=== PATIENT | male | born 1970 | race Caucasian/White ===

== ENCOUNTER 2016-11-06 12:39 | Emergency (ER) | payer OTHER ==
[2016-11-06] MEDS ORDERED: Ketorolac INJ* 30 MG/ML 1 ML VIAL IV ONE (13:10)
[2016-11-06] MEDS ORDERED: Ondansetron INJ* 2 MG/ML VIAL IV ONE (13:10)
[2016-11-06] MEDS ORDERED: Morphine INJ* 4 MG/ML 1 ML CARPUJECT IV ONE (13:10)
[2016-11-06] MEDS: NS 0.9% 1000 ML* 2,000 ML IV ONE (13:17)
[2016-11-06 13:23] LABS: Hematocrit 46 % (42-52); Hemoglobin 16.2 g/dl (14.0-18.0); Mean Corpuscular HGB Conc 35 g/dl (31-36); Mean Corpuscular Hemoglobin 32 pg (27-31); Mean Corpuscular Volume 91 fL (80-94); Mean Platelet Volume 10 um3 (7.4-10.4); Red Blood Count 5.08 10^6/ul (4.0-5.4); Red Cell Distribution Width 12 % (10.5-15); White Blood Count 4.4 10^3/ul (3.5-10.8)
[2016-11-06 13:25] LABS: Urine Bilirubin Negative (Negative); Urine Glucose Negative (Negative); Urine Nitrite Negative (Negative)
[2016-11-06 13:43] LABS: ALT 110 U/L (7-52); AST 47 U/L (13-39); Albumin 4.9 g/dL (3.2-5.2); Alkaline Phosphatase 103 U/L (34-104); Anion Gap 3 mmol/L (2-11); BUN/Creatinine Ratio 10.6 (8-20); Blood Urea Nitrogen 10 mg/dL (6-24); C Reactive Protein < 1.00 mg/L (< 5.00); CO2 Carbon Dioxide 31 mmol/L (22-32); Calcium 9.9 mg/dL (8.6-10.3); Chloride 102 mmol/L (101-111); EGFR African American 111.1 (>60); EGFR Non-African American 86.4 (>60); Globulin 2.8 g/dL (2-4); Glucose 138 mg/dL (70-100); Lipase 18 U/L (11.0-82.0); Potassium 3.5 mmol/L (3.5-5.0); Sodium 136 mmol/L (133-145); Total Protein 7.7 g/dL (6.4-8.9)
[2016-11-06 14:18] LABS: Troponin I 0.01 ng/mL (<0.04)
--- NOTE | 2016-11-06 14:41 | RAD ---
INDICATION: Intermittent right groin pain. History of right renal mass COMPARISON: CTA chest/abdomen/pelvis August 22, 2016 TECHNIQUE: Noncontrast axial source images were obtained from the hemidiaphragms to the symphysis pubis. Lung bases: There is a right-sided pericardial cyst measuring 3.5 cm, unchanged. There is bibasilar gravity dependent atelectasis. Liver: The liver is normal in size. Noncontrast imaging shows no evidence of a hepatic mass or ductal dilatation. Gallbladder: There are no calcified gallstones. There is no evidence of wall thickening or pericholecystic fluid.. Spleen: The spleen is normal in size. The noncontrast CT appearance is normal. Pancreas: Noncontrast imaging shows no pancreatic mass or ductal dilitation. Adrenal glands: No masses are identified. Kidneys/Bladder: There is a solid mid pole right renal mass measuring 2.1 cm and better evaluated on the earlier contrast-enhanced examination. On the basis of this earlier examination renal cell carcinoma could not excluded. By patient report this is currently being worked up prior to planned biopsy. There is also a lower pole right renal cyst measuring 2.3 cm and there is a 5 mm hyperdense left renal cyst. These latter 2 lesions are unchanged as well. There is no evidence of nephrolithiasis. The bladder appears mildly trabeculated. Adenopathy: There is no evidence of intraperitoneal or retroperitoneal adenopathy. Evaluation is limited without oral contrast. Fluid collections: There are no free or localized fluid collections. Vessels: The aorta and iliac vessels are normal in caliber. There are no significant atherosclerotic changes. The IVC appears normal Pelvic organs: The prostate is mildly enlarged. GI tract: Evaluation of the bowel is limited without oral contrast. The the upper GI tract is unremarkable. There are scant diverticula of the descending and sigmoid colon. There are no obstructive findings. Soft tissues: No soft tissue abnormalities of the extraperitoneal abdomen or pelvis are identified. There are no inguinal abnormalities identified on CT Osseous structures: There are no acute osseous findings. There are presumed bone islands in the left iliac wing and left femoral head, unchanged. There is chronic L5 spondylolysis without associated anterolisthesis. There is a mild levoscoliosis. IMPRESSION: 1. Right-sided pericardial cyst, unchanged. 2. The upper pole right-sided renal lesion is stable in the short interval and by patient history has not been biopsied but this is planned. 3. No CT abnormalities in the right inguinal region 4. Scattered diverticula. No CT evidence of acute diverticulitis
--- NOTE | 2016-11-06 15:28 | ED ---
I, Alvin,Dale, scribed for Bong Guadalupe MD on 11/06/16 at 1314 . Abdominal Pain/Male - HPI Summary HPI Summary: THis 46 y/o male presents to ED for acute RLQ pain that radiates to RLE leg since 1 hour ago. Pain is sharp "shooting" and intermittent "every 10 minutes" since the time of onset. Pt states that pain is so severe "I feel like I will pass out". Pain is currently rated as 4/10. Pt was ambulating out toward his car outdoor at the time of onset. Pt states that he currently has kidney "mass" pending removal surgery, but denies any Hx of kidney stone or similar abd pain in the past. Mild diarrhea this morning. No fever, chills, n/v, or dysuria. He is currently on Lipitor, Zoloft, and lorazepam. - History of Current Complaint Chief Complaint: EDAbdPain Stated Complaint: GROIN PAIN Time Seen by Provider: 11/06/16 13:00 Hx Obtained From: Patient Onset/Duration: Still Present Timing: Intermittent Pain Intensity: 4 Pain Scale Used: 0-10 Numeric Location: Discrete At: RLQ Radiates: Yes Radiates to: Other - RLE Character: Sharp - "shooting" Aggravating Factor(s): Nothing Alleviating Factor(s): Spontaneous Resolution Associated Signs And Symptoms: Positive: Diarrhea. Negative: Fever, Urinary Symptoms - Allergies/Home Medications Allergies/Adverse Reactions: Allergies Allergy/AdvReac Type Severity Reaction Status Date / Time No Known Allergies Allergy Verified 02/04/16 14:43 PMH/Surg Hx/FS Hx/Imm Hx - Surgical History Surgery Procedure, Year, and Place: RIGHT LEG AND LEFT LOWER ARM VEIN STRIPPING Infectious Disease History: No Infectious Disease History: Denies: Traveled Outside the [place] in Last 30 Days - Family History Known Family History: Negative: Diabetes - Social History Alcohol Use: Daily - couple beers a night Hx Substance Use: No Substance Use Type: Reports: None Hx Tobacco Use: No Smoking Status (MU): Never Smoked Tobacco Review of Systems Negative: Fever, Chills Positive: Abdominal Pain - RLQ tenderness, Diarrhea Negative: dysuria Negative: Anxious, Depressed All Other Systems Reviewed And Are Negative: Yes Physical Exam Triage Information Reviewed: Yes Vital Signs On Initial Exam: Initial Vitals Temp Pulse Resp BP Pulse Ox 97.7 F 74 20 137/94 98 11/06/16 12:43 11/06/16 12:43 11/06/16 12:43 11/06/16 12:43 11/06/16 12:43 Vital Signs Reviewed: Yes Appearance: Positive: Pain Distress - mild to moderate Skin: Positive: Warm, Skin Color Reflects Adequate Perfusion, Dry Head/Face: Positive: Normal Head/Face Inspection Eyes: Positive: EOMI, RAVI Neck: Positive: Supple, Nontender Respiratory/Lung Sounds: Positive: Breath Sounds Present Cardiovascular: Positive: RRR, Pulses are Symmetrical in both Upper and Lower Extremities Abdomen Description: Positive: Other: - Mildly tender at inguinal canal and RLQ Bowel Sounds: Positive: Present Male Genital Exam: Positive: normal genitalia, normal prostate, inguinal tenderness. Negative: testicular tenderness (R), testicular tenderness (L) Musculoskeletal: Positive: Strength/ROM Intact Neurological: Positive: Sensory/Motor Intact, Alert, Oriented to Person Place, Time Psychiatric: Positive: Affect/Mood Appropriate AVPU Assessment: Alert Diagnostics - Vital Signs Vital Signs Temp Pulse Resp BP Pulse Ox 11/06/16 13:00 65 128/76 96 11/06/16 12:59 66 96 11/06/16 12:43 97.7 F 74 20 137/94 98 - Laboratory Lab Results: Lab Results 11/06/16 11/06/16 11/06/16 Range/Units 13:00 13:00 13:00 WBC 4.4 (3.5-10.8) 10^3/ul RBC 5.08 (4.0-5.4) 10^6/ul Hgb 16.2 (14.0-18.0) g/dl Hct 46 (42-52) % MCV 91 (80-94) fL MCH 32 H (27-31) pg MCHC 35 (31-36) g/dl RDW 12 (10.5-15) % Plt Count 172 (150-450) 10^3/ul MPV 10 (7.4-10.4) um3 Neut % (Auto) 59.6 (38-83) % Lymph % (Auto) 30.9 (25-47) % [place] % (Auto) 7.2 (1-9) % Eos % (Auto) 1.9 (0-6) % Baso % (Auto) 0.4 (0-2) % Absolute Neuts (auto) 2.6 (1.5-7.7) 10^3/ul Absolute Lymphs (auto) 1.4 (1.0-4.8) 10^3/ul Absolute Monos (auto) 0.3 (0-0.8) 10^3/ul Absolute Eos (auto) 0.1 (0-0.6) 10^3/ul Absolute Basos (auto) 0 (0-0.2) 10^3/ul Absolute Nucleated RBC 0.01 10^3/ul Nucleated RBC % 0.1 INR (Anticoag Therapy) 1.02 (0.89-1.11) APTT 35.7 (26.0-36.3) seconds Sodium (133-145) mmol/L Potassium (3.5-5.0) mmol/L Chloride (101-111) mmol/L Carbon Dioxide (22-32) mmol/L Anion Gap (2-11) mmol/L BUN (6-24) mg/dL Creatinine (0.67-1.17) mg/dL Est GFR ( Amer) (>60) Est GFR (Non-Af Amer) (>60) BUN/Creatinine Ratio (8-20) Glucose (70-100) mg/dL Lactic Acid (0.5-2.0) mmol/L Calcium (8.6-10.3) mg/dL Total Bilirubin (0.2-1.0) mg/dL AST (13-39) U/L ALT (7-52) U/L Alkaline Phosphatase (34-104) U/L Troponin I (<0.04) ng/mL C-Reactive Protein (< 5.00) mg/L Total Protein (6.4-8.9) g/dL Albumin (3.2-5.2) g/dL Globulin (2-4) g/dL Albumin/Globulin Ratio (1-3) Lipase (11.0-82.0) U/L Urine Color Yellow Urine Appearance Clear Urine pH 7.0 (5-9) Ur Specific [place] 1.018 (1.010-1.030) Urine Protein Negative (Negative) Urine Ketones Negative (Negative) Urine Blood Negative (Negative) Urine Nitrate Negative (Negative) Urine Bilirubin Negative (Negative) Urine Urobilinogen Negative (Negative) Ur Leukocyte Esterase Negative (Negative) Urine Glucose Negative (Negative) Urine Ascorbic Acid * H (Negative) 11/06/16 11/06/16 Range/Units 13:00 13:00 WBC (3.5-10.8) 10^3/ul RBC (4.0-5.4) 10^6/ul Hgb (14.0-18.0) g/dl Hct (42-52) % MCV (80-94) fL MCH (27-31) pg MCHC (31-36) g/dl RDW (10.5-15) % Plt Count (150-450) 10^3/ul MPV (7.4-10.4) um3 Neut % (Auto) (38-83) % Lymph % (Auto) (25-47) % [place] % (Auto) (1-9) % Eos % (Auto) (0-6) % Baso % (Auto) (0-2) % Absolute Neuts (auto) (1.5-7.7) 10^3/ul Absolute Lymphs (auto) (1.0-4.8) 10^3/ul Absolute Monos (auto) (0-0.8) 10^3/ul Absolute Eos (auto) (0-0.6) 10^3/ul Absolute Basos (auto) (0-0.2) 10^3/ul Absolute Nucleated RBC 10^3/ul Nucleated RBC % INR (Anticoag Therapy) (0.89-1.11) APTT (26.0-36.3) seconds Sodium 136 (133-145) mmol/L Potassium 3.5 (3.5-5.0) mmol/L Chloride 102 (101-111) mmol/L Carbon Dioxide 31 (22-32) mmol/L Anion Gap 3 (2-11) mmol/L BUN 10 (6-24) mg/dL Creatinine 0.94 (0.67-1.17) mg/dL Est GFR ( Amer) 111.1 (>60) Est GFR (Non-Af Amer) 86.4 (>60) BUN/Creatinine Ratio 10.6 (8-20) Glucose 138 H (70-100) mg/dL Lactic Acid 1.2 (0.5-2.0) mmol/L Calcium 9.9 (8.6-10.3) mg/dL Total Bilirubin 1.00 (0.2-1.0) mg/dL AST 47 H (13-39) U/L ALT 110 H (7-52) U/L Alkaline Phosphatase 103 (34-104) U/L Troponin I 0.01 (<0.04) ng/mL C-Reactive Protein < 1.00 (< 5.00) mg/L Total Protein 7.7 (6.4-8.9) g/dL Albumin 4.9 (3.2-5.2) g/dL Globulin 2.8 (2-4) g/dL Albumin/Globulin Ratio 1.8 (1-3) Lipase 18 (11.0-82.0) U/L Urine Color Urine Appearance Urine pH (5-9) Ur Specific [place] (1.010-1.030) Urine Protein (Negative) Urine Ketones (Negative) Urine Blood (Negative) Urine Nitrate (Negative) Urine Bilirubin (Negative) Urine Urobilinogen (Negative) Ur Leukocyte Esterase (Negative) Urine Glucose (Negative) Urine Ascorbic Acid (Negative) Result Diagrams: 11/06/16 13:00 11/06/16 13:00 Lab Statement: Any lab studies that have been ordered have been reviewed, and results considered in the medical decision making process. - CT Ab/P CT Interpretation: Positive (See Comments) - 1. Right-sided pericardial cyst, unchanged. 2. The upper pole right-sided renal lesion is stable in the short interval and by patient history has not been biopsied but this is planned. 3. No CT abnormalities in the right inguinal region 4. Scattered diverticula. No CT evidence of acute diverticulitis CT Interpretation Completed By: Radiologist - EKG 1344 Cardiac Rate: Bradycardia - 51 bpm EKG Rhythm: Sinus Bradycardia Ectopy: None EKG Interpretation: Flipped T at aVF Re-Evaluation - Re-Evaluation First Eval Re-Evaluation Time: 13:36 Change: Worse Comment: in room to re-eval pt. BP and HR dropped after toradol, morphine, and zofran, and pt expresses concerned over morphine. Only 1 episode of pain after the meds were given. Second Eval Re-Evaluation Time: 14:54 Comment: MD in room to share CT ab/p and bloodwork results. Abdominal Pain Fem Course/Dx - Course Assessment/Plan: PAIN GONE AFTER CT. DISCUSSED RESULTS WITH PATIENT TO INCLUDE THE RT KIDNEY MASS FINDING. PATIENT REPORTS HE HAS AN APPOINTMENT IN 1 WEEK, , IN [place] FOR THIS MASS. DISCHARGE HOME STABLE. - Diagnoses Provider Diagnoses: Inguinal pain, Abdominal pain Discharge - Discharge Plan Condition: Stable Disposition: HOME Patient Education Materials: Abdominal Pain (ED), Groin Pain (ED) Referrals: [facility] [place] [facility] [Outside] [facility] [place] [Primary Care Provider] - Additional Instructions: FOLLOW UP WITH YOUR PRIMARY CARE DOCTOR AND SCHEDULED ON 11/14/15 IN [place] FOR YOUR KIDNEY MASS. RETURN TO THE EMERGENCY DEPARTMENT FOR ANY WORSENING OF YOUR CONDITION; PAIN, FEVER, YOU FEEL ILL, YOU FEEL LIKE YOU ARE GOING TO PASS OUT OR QUESTIONS OR CONCERNS. The documentation as recorded by the Alvin bronson Soohyun accurately reflects the service I personally performed and the decisions made by me, Bong Guadalupe MD.
[2016-11-06 15:41] VITALS: BP 96/55
== END 2016-11-06 15:40 | disposition home or self-care (01) ==
LOC: ED 12:39
DX: R10.31 Right lower quadrant pain (principal); R10.813 Right lower quadrant abdominal tenderness
CPT/HCPCS: 36415; 74176; 80053; 81003; 83605; 83690; 84484; 85025; 85610; 85730; 86140; 93005; 96374; 96375; 99283; J1885; J2270; J2405